=== PATIENT | female | born 1980 | race Caucasian/White ===

== ENCOUNTER 2023-12-13 20:30 | Emergency (ER) | payer OTHER, SELFPAY ==
--- NOTE | ~2023-12-13 | XR_ITS ---
XR chest 2V Ordering provider: Abhi Brunner MD History: 43 years Female with . cp COUGH, CONGESTION AND HEADACHE X 1.5 WEEKS . Comparison: None. FINDINGS: MEDIASTINUM: The cardiac silhouette is not enlarged. LUNGS: No infiltrates, effusions or pneumothorax. Slightly prominent markings bilaterally in the lower lobes. OTHER: No free air under the diaphragm. IMPRESSION: No acute cardiopulmonary pathology. Reviewed, dictated and finalized at location A.
--- NOTE | 2023-12-13 20:31 | ECG_ITS ---
Test Date: 2023-12-13 20:40:27 Measurements Intervals [place] Rate: 106 P: 59 VT: 143 QRS: 59 QRSD: 86 T: -1 QT: 328 QTc: 437 Interpretive Statements SINUS TACHYCARDIA POSSIBLE LEFT ATRIAL ENLARGEMENT [-0.1mV P WAVE IN V1/V2] NONSPECIFIC T-WAVE ABNORMALITY ABNORMAL RHYTHM ECG No previous ECG available for comparison Electronically Signed On 12-14-2023 07:15:18 CDT by Rehan Bishop M.D.
[2023-12-13 20:32] VITALS: BP 164/99; PULSE 110; RESP 17; TEMP 36.6; O2SAT 97
[2023-12-13 20:55] LABS: Basophils Absolute Auto 0.1 K/mm3 (0.0-0.1); Basophils Percent Auto 0.6 % (0.2-1.2); Eosinophils Absolute Auto 0.6 K/mm3 (0-0.3); Eosinophils Percent Auto 5.7 % (0-4.4); Hematocrit 47.8 % (37.0-47.0); Hemoglobin 16.1 g/dL (12.0-15.0); Immature Granulocyte Absolute 0.03 K/mm3 (0.00-0.031); Immature Granulocyte Percent A 0.3 % (0-0.5); Lymphocytes Absolute Auto 2.61 K/mm3 (0.9-3.2); Lymphocytes Percent Auto 25.3 % (18.3-44.2); Mean Corpuscular HGB Conc 33.7 g/dl (32-36); Mean Corpuscular Hemoglobin 30.5 pg (26-34); Mean Corpuscular Volume 90.5 fl (80-100); Mean Platelet Volume 9.4 fl (7.4-10.4); Monocytes Absolute Auto 0.5 K/mm3 (0.1-0.6); Monocytes Percent Auto 4.9 % (2.6-8.5); Neutrophils Absolute Auto 6.5 K/mm3 (1.3-6.7); Neutrophils Percent Auto 63.2 % (45.5-73.1); Platelet Count Result 259 k/mm3 (150-375); Red Blood Count 5.28 M/mm3 (4.2-5.4); Red Cell Distribution Width 12.5 % (11.5-14.5); White Blood Count 10.3 K/mm3 (4.5-10.0)
[2023-12-13 21:05] LABS: Alanine Aminotransferase 23 U/L (6-35); Albumin Level 3.8 g/dL (3.5-5.1); Alkaline Phosphatase 98 U/L (38-126); Anion Gap 10 mmol/L (4-12); Aspartate Amino Transferase 27 U/L (14-36); Bilirubin,Total 0.4 mg/dL (0.2-1.3); Blood Urea Nitrogen 5 mg/dL (7-17); Calcium 8.7 mg/dL (8.4-10.2); Carbon Dioxide 24 mmol/L (22-30); Chloride 103 mmol/L (98-107); Estimated CRCL calculation 121 ml/min; Estimated Glomerular Filt Rate > 60; Glucose 141 mg/dL (65-110); Lipase 78 U/L (23-300); Potassium 3.5 mmol/L (3.4-5.0); Sodium 137 mmol/L (137-145)
[2023-12-13 21:09] LABS: Partial Thromboplastin Time 30.3 Seconds (22.3-36.8)
[2023-12-13 21:16] LABS: Troponin I < 0.012 ng/mL (0.000-0.034)
[2023-12-13 21:33] LABS: Influenza A QL RT-PCR Negative (Negative); Influenza B QL RT-PCR Negative (Negative); RSV RNA, RT-PCR Negative (Negative); SARS-CoV-2 RNA PCR Negative (Negative)
[2023-12-13 22:56] VITALS: BP 131/88; PULSE 112; RESP 19; O2SAT 95; O2SAT 96
--- NOTE | 2023-12-13 23:43 | ECG_ITS ---
Test Date: 2023-12-13 23:43:14 Measurements Intervals [place] Rate: 96 P: 45 FL: 150 QRS: 40 QRSD: 82 T: 25 QT: 359 QTc: 455 Interpretive Statements SINUS RHYTHM POSSIBLE LEFT ATRIAL ENLARGEMENT [-0.1mV P-WAVE IN V1/V2] BORDERLINE ECG Compared to ECG 12/13/2023 20:40:27 t T-wave abnormality no longer present Electronically Signed On 12-15-2023 13:22:13 CDT by Rehan Bishop M.D.
[2023-12-14 00:06] LABS: Troponin I < 0.012 ng/mL (0.000-0.034)
--- NOTE | 2023-12-14 00:09 | ED.URI ---
HPI - URI/Sore Throat General Chief Complaint: Upper Respiratory Infection Stated Complaint: upper respiratory Time Seen by Provider: 12/13/23 23:51 History of Present Illness HPI Narrative: 43-year-old female presents to emergency department for URI symptoms for approximately 1 week. Patient states her symptoms started with a head cold and now has moved to her chest. She reports congestion, productive cough, shortness of breath, wheezing. She is reporting chest pain and back pain that is worse when she takes a deep breath. She denies radiating symptoms or exertional symptoms. States she believes her chest pain and back pain is muscular and due to coughing. She denies known fevers, nausea vomiting, diarrhea, abdominal pain. She does state that she smokes approximately half pack a day for several years. Denies formal diagnosis of asthma or COPD. She denies hemoptysis, history of VTE, lower extremity edema, recent surgeries or hospitalizations. She denies known personal or family history of cardiac disease or strokes. Related Data Allergies Allergy/AdvReac Type Severity Reaction Status Date / Time No Known Allergies Allergy Unknown Unverified 07/07/23 10:54 Review of Systems Review of Systems: All systems reviewed & are unremarkable except as noted in HPI and below Exam Narrative: GENERAL: Well-appearing, well-nourished, and in no acute distress. HEAD: Normocephalic, atraumatic. ENT: Nares clear, no rhinorrhea or epistaxis. Mucous membranes moist. NECK: Supple. CHEST: No respiratory distress. Patient is satting 96% on room air and speaking in full sentences. She does have expiratory wheezing and rhonchi in all lung barros. HEART: Regular rate and rhythm. No murmur heard. Normal peripheral pulses. ABDOMEN: Soft, nontender, nondistended, normal active bowel sounds. EXTREMITIES: Normal range of motion. No edema. Negative Homans bilaterally SKIN: Warm, dry, no rash. NEURO: No focal deficits. Alert and oriented x3 Course Vital Signs Vital signs: Vital Signs Temperature 97.8 F 12/13/23 20:32 Pulse Rate 110 H 12/13/23 20:32 Respiratory Rate 17 12/13/23 20:32 Blood Pressure 164/99 H 12/13/23 20:32 Pulse Oximetry 97 12/13/23 20:32 Oxygen Delivery Room Air 12/13/23 20:32 Temperature 97.8 F 12/13/23 20:32 Pulse Rate 112 H 12/13/23 22:56 Respiratory Rate 22 H 12/14/23 00:39 Blood Pressure 131/88 12/13/23 22:56 Pulse Oximetry 96 12/13/23 22:56 Oxygen Delivery Room Air 12/13/23 22:56 MDM - URI/Sore Throat MDM Narrative Medical decision making narrative: 43-year-old female presents emergency department for cough, congestion, chest and back pain. Triage vital significant for tachycardia 110. She is afebrile and speaking in full sentences, satting 97% on room air in no respiratory distress. Exam is significant for expiratory wheezing and rhonchi in all lung barros. She does endorse a extensive history of smoking but denies formal diagnosis of COPD or asthma. EKG shows sinus tachycardia rate of 106, normal RI interval, normal QRS duration, normal QTC, nonspecific T-wave abnormality, possible ST depressions in the inferior and lateral leads, however this may be affected by a poor baseline. There is no ST elevation. CBC with leukocytosis of 10.3 and elevated hemoglobin of 16.1 which may be secondary to chronic smoking. Chemistries are unremarkable. COVID, flu RSV are negative. Lipase is normal. Mag is normal at 2.1. Chest x-ray shows no acute cardiopulmonary abnormality. BNP normal. D-dimer mildly elevated 0.57, wells score is low risk, PE excluded with Years score. Workup discussed with the patient. She received an hour long DuoNeb. I discussed placing an IV for IV fluids and IV Solu-Medrol. Patient declined states she does not what any needle sticks. States she wants to go home. her tachycardia has resolved. Repeat EKG shows no ST depressions, prior EKG was lik
[2023-12-14 00:19] LABS: Magnesium 2.1 mg/dL (1.6-2.3)
[2023-12-14 00:20] LABS: D Dimer 0.57 ug/mL (<0.48)
[2023-12-14 00:29] LABS: NT Pro B Type Natriuretic Pept 39 pg/mL (19.9-100)
[2023-12-14] MEDS: IPRATROPIUM 0.5 MG/ALBUTEROL SULFATE 2.5 MG AMPUL.NEB 3 ML INHALATION ×3 (00:34→00:42)
--- NOTE | 2023-12-14 00:34 | PC.NURSE ---
Pt refusing ABG and IV at this time. Pt states I'm not doing this anymore. I do not want to be poked. NANNETTE Damico notified.
[2023-12-14 00:39] VITALS: RESP 22
--- NOTE | 2023-12-14 00:52 | ECG_ITS ---
Test Date: 2023-12-14 00:56:15 Measurements Intervals [place] Rate: 84 P: 55 HI: 145 QRS: 59 QRSD: 82 T: 34 QT: 389 QTc: 461 Interpretive Statements SINUS RHYTHM POSSIBLE LEFT ATRIAL ENLARGEMENT [-0.1mV P-WAVE IN V1/V2] BORDERLINE ECG Compared to ECG 12/13/2023 23:43:14 No significant changes Electronically Signed On 12-14-2023 07:23:17 CDT by Rehan Bishop M.D.
[2023-12-14 01:04] LABS: SPREG INTERNAL CONTROL Positive; Serum Qual hCG Negative
[2023-12-14 01:42] VITALS: PULSE 84
[2023-12-14] MEDS: AMOXICILLIN/CLAVULANATE K 875-125 MG TAB 1 TABLET PO (02:07)
[2023-12-14] MEDS: predniSONE 20 MG TABLET 60 MG PO (02:07)
== END 2023-12-14 02:10 | disposition home or self-care (01) ==
PROVIDERS: Emergency Medicine; Emergency Provider Physician Assistant
DX: J40 Bronchitis, not specified as acute or chronic (principal); R06.2 Wheezing; R07.89 Other chest pain; F17.210 Nicotine dependence, cigarettes, uncomplicated; Z20.822 Contact with and (suspected) exposure to COVID-19; R00.0 Tachycardia, unspecified; R94.31 Abnormal electrocardiogram [ECG] [EKG]
CPT/HCPCS: 36415; 36600; 71046; 80053; 83690; 83735; 83880; 84484; 84703; 85025; 85380; 85610; 85730; 87637; 93005; 94640; 99284; A9270; J7512

== ENCOUNTER 2024-11-11 10:48 | Outpatient (CLI) | payer OTHER, SELFPAY ==
--- NOTE | ~2024-11-11 | MMUS_ITS ---
EXAMINATION: MM diagnostic malick RT w glenna, US breast RT limited HISTORY: Follow-up right breast mass TECHNIQUE: Additional 3-D tomosynthesis images of the right breast were performed and synthetic 2-D i mages were generated. CAD analysis was submitted and interpreted. High resolution Limited right breas t ultrasound was performed. COMPARISON: 09/10/2024 BREAST PARENCHYMAL COMPOSITION: Not dense: There are scattered areas of fibroglandular density. FINDINGS: MAMMOGRAPHIC FINDINGS: There is a low-density mass in the lower central aspect of the right breast, posterior third. There a re no suspicious calcifications or architectural distortion. ULTRASOUND: Limited right breast ultrasound: At 6:00, 4 cm from the nipple there is an oval hypoechoic mass with parallel orientation, no significant posterior features or internal vascularity measuring 10 x 10 x 4 mm, likely benign. This corresponds to the mammographic finding. IMPRESSION: 1. Probable benign right breast mass at 6:00, 4 cm from the nipple. 2. Recommend 6 month follow-up diagnostic right mammogram and Limited right breast ultrasound. BI-RADS category 3, probably benign findings. Reviewed, dictated and finalized at location A. IMPRESSION: 1. Probable benign right breast mass at 6:00, 4 cm from the nipple. 2. Recommend 6 month follow-up diagnostic right mammogram and Limited right jaida ast ultrasound. BI-RADS category 3, probably benign findings.
--- OUTSIDE RECORDS SUMMARY | 2024-11-11 11:02 | XMS_ITS | Clinical Summary ---
Author Organization [employer] Address [address] [place] [address] Care Team Providers Care Mobile Solutions Architect Name Role Phone Unavailable Primary Care Provider Unavailabl e Source Comments [facility] [employer],non-owned Affiliates and Associated Physician Practices is amultiple site organization consisting of ambulatory clinics and hospital sitesin [place], [place], [place] and [place]. This disclosure is being madepursuant to the Care Everywhere program and may not contain all information available regarding this patient. Last updated [employer] Allergies No known active allergies Medications * Be aware that medications may not be up to date on this document. Alwaysverify current medications with the patient. 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 Pulse 97 05/15/2016 11:12 AM 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 Temperature 36.3 C (97.4 F) 05/15/2016 11:12 AM 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 Respiratory Rate 18 05/15/2016 11:12 AM 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 Oxygen Saturation 98% 05/15/2016 11:12 AM 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 Inhaled Oxygen Concentration - - Weight 73.9 kg (163 lb) 05/15/2016 11:12 AM 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 Height 162.6 cm (5' 4) 05/15/2016 11:12 AM 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 Body Mass Index 27.98 05/15/2016 11:12 AM 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 Plan of Treatment Health Maintenance Due Date Last Done Comments LIPID TESTING 1982 MAMMOGRAM 1982 HIV SCREENING 1997 HEPATITIS C SCREENING 12/03/2000 DTAP/TDAP/TD VACCINES (1 - Tdap) 2001 HEPATITIS B VACCINE (1 of 3 - 19+ 3-dose series) 2001 COVID-19 VACCINE (1 - 2023-2 5 season) 2024 DEPRESSION SCREENING 05/08/2024 INFLUENZA VACCINE (Season Ended) 2025 ZOSTER VACCINE (1 of 2) 2032 HIB VACCINE Aged Out No longer eligi ble based on patient's age to complete this topic HPV VACCINE Aged Out No longer eligi ble based on patient's age to complete this topic MENINGOCOCCAL (Group B) VACC INE SHARED DECISION-MAKING Aged Out No longer eligibl e based on patient's age to complete this topic MENINGOCOCCAL GROUPS A/C/Y/W VACCINE Aged Out No longer eligible b ased on patient's age to complete this topic PNEUMOCOCCAL VACCINE Aged Out No long er eligible based on patient's age to complete this topic Insurance HEALTH PLAN "
== END 2024-11-11 10:49 | disposition home or self-care (01) ==
LOC: ANHIMG 10:51
PROVIDERS: Visit Provider Emergency Medicine
DX: N63.10 Unspecified lump in the right breast, unspecified quadrant (principal); R92.8 Other abnormal and inconclusive findings on diagnostic imaging of breast
CPT/HCPCS: 76642; 77061; 77065; G0279